=== PATIENT | male | born 1960 | race Caucasian/White ===

== ENCOUNTER 2017-01-31 10:45 | Inpatient (IN) | payer OTHER ==
[~2017-01-31] VITALS: Ht 174 cm; Wt 88.0 kg
[2017-01-31] MEDS ORDERED: IV NORMAL SALINE 500 ML BAG IV ONE (11:00)
[2017-01-31 11:15] LABS: BASOPHILS # (AUTO) 0.1 K/uL (0.0-8.0); EOSINOPHILS # (AUTO) 0.1 K/uL (0.0-0.7); EOSINOPHILS % (AUTO) 1.9 % (0.0-7.0); HEMATOCRIT 29.9 % (36.7-47.1); LYMPHOCYTES % (AUTO) 16.2 % (20.5-51.5); MEAN CORPUSCULAR HEMOGLOBIN 30.7 uug (23.8-33.4); MEAN CORPUSCULAR HGB CONC 34 g/dL (32.5-36.3); MEAN CORPUSCULAR VOLUME 91.5 fL (73.0-96.2); MONOCYTES # (AUTO) 0.8 K/uL (2.0-10.0); MONOCYTES % (AUTO) 12.8 % (0.0-11.0); NEUTROPHILS # (AUTO) 4.1 K/uL (1.8-8.9); NEUTROPHILS % (AUTO) 68.1 % (38.5-71.5); PLATELET COUNT (AUTO) 121 K/uL (152-348); RED BLOOD CELL COUNT(AUTO) 3.27 MIL/uL (4.06-5.63)
[2017-01-31] MEDS ORDERED: NYSTATIN POWDER TP (11:15)
[2017-01-31] MEDS ORDERED: HYDR-3326 PO (11:15)
[2017-01-31] MEDS ORDERED: RIFA550T PO (11:15)
[2017-01-31] MEDS ORDERED: DIPH25CA83 PO (11:15)
[2017-01-31] MEDS ORDERED: INSU3INS6 SQ (11:15)
[2017-01-31] MEDS ORDERED: INSU100C SQ ×2 (11:15)
[2017-01-31] MEDS ORDERED: LACT10SO PO (11:15)
[2017-01-31] MEDS ORDERED: FOLI1TAB16 PO (11:15)
[2017-01-31] MEDS ORDERED: HYDROMORPHONE 1 MG/1 ML DISP.SYRIN IV ONE (11:15)
[2017-01-31] MEDS ORDERED: ONDANSETRON IV *ER 4 MG/2 ML VIAL IV ONE (11:15)
[2017-01-31] MEDS ORDERED: MAGN400C PO (11:15)
[2017-01-31] MEDS ORDERED: PANT40TA4 PO (11:15)
[2017-01-31] MEDS ORDERED: THIA100T74 PO (11:15)
[2017-01-31 11:19] LABS: POTASSIUM 5.3 mmol/L (3.5-5.1)
[2017-01-31 11:24] LABS: BILIRUBIN,DIRECT 0.6 mg/dL (0.0-0.2); BILIRUBIN,TOTAL 1.3 mg/dL (0.2-1.0); TOTAL PROTEIN, SERUM 7.2 g/dL (6.4-8.2)
[2017-01-31] MEDS ORDERED: ONDANSETRON 4 MG/2 ML VIAL ONE (11:27)
[2017-01-31] MEDS ORDERED: HYDROMORPHONE 2 MG/1 ML DISP.SYRIN ONE (11:27)
--- NOTE | 2017-01-31 12:10 | NUR ---
PERINEAL HYGIENE PROVIDED, SCROTUM AND THE PENIS SWOLLEN AND TENDER. COCCYX REDNESS WITH SKIN OPEN NOTICED. BORDERED DRESSING PLACED.
--- NOTE | 2017-01-31 12:44 | NUR ---
PT TRANSFERED TO FLOOR IN STABLE CONDITION
[2017-01-31 13:21] VITALS: BP 136/93
[2017-01-31] MEDS ORDERED: TEMAZEPAM 15 MG CAPSULE PO PRN (13:30)
[2017-01-31] MEDS ORDERED: INSULIN REGULAR, HUMAN 300 UNITS/3 ML VIAL SQ PRN (13:30)
[2017-01-31] MEDS ORDERED: ONDANSETRON 4 MG/2 ML VIAL IV PRN (13:30)
[2017-01-31] MEDS ORDERED: diphenhydrAMINE 25 MG CAP PO PRN (13:30)
[2017-01-31] MEDS ORDERED: ALBUTEROL SULFATE 1.25 MG/3 ML NEBU NEB PRN (13:30)
[2017-01-31] MEDS ORDERED: DEXTROSE 50% 50 ML DISP.SYRIN IV PRN (13:30)
[2017-01-31 15:20] VITALS: BP 136/76
--- NOTE | 2017-01-31 16:00 | NUR ---
Pt in room at this time receiving parcentesis. Sinus rhythm noted. No s/s of acute distress at this time. Continue to monitor.
[2017-01-31] MEDS ORDERED: Medication Not On Formulary EA (Lactulose (Duphalac) 30 ML) PO SCH (17:00)
--- NOTE | 2017-01-31 17:00 | NUR ---
Pt had 6L of fluids removed via paracentesis. Denies any dizziness or headaches at this time. States he would like some pain medication for general pain 10/30. Continue to monitor. HOB elevated 30 degrees. Call light placed within reach.
[2017-01-31] MEDS: BLOOD SUGAR DIAGNOSTIC 1 EACH STRIP VI SCH ×2 (17:05→21:14)
[2017-01-31] MEDS: PANTOPRAZOLE SODIUM 40 MG TABLET.DR PO SCH (17:24)
[2017-01-31] MEDS: MAGNESIUM OXIDE 400 MG TABLET PO SCH (17:24)
[2017-01-31] MEDS: RIFAXIMIN 550 MG TABLET PO SCH (17:24)
[2017-01-31] MEDS: HYDROCODONE/APAP 5-325MG TABLET PO PRN (17:25)
[2017-01-31] MEDS: LACTULOSE 20 G/30 ML LIQUID UDC PO SCH (17:25)
[2017-01-31] MEDS: CEFTRIAXONE 1 G in IV DEXTROSE 5% 50 ML IV SCH (17:48)
[2017-01-31 20:00] VITALS: BP 104/65
[2017-01-31] MEDS: INSULIN DETEMIR 300 UNIT/3 ML CARTRIDGE SQ SCH (21:11)
--- NOTE | 2017-02-01 01:00 | NUR ---
Pt asleep at this time. No acute distress. Continue to monitor. Call light placed within reach.
[2017-02-01] MEDS: HYDROCODONE/APAP 5-325MG TABLET PO PRN ×4 (02:54→21:10)
[2017-02-01 05:28] VITALS: BP 111/69
[2017-02-01] MEDS: BLOOD SUGAR DIAGNOSTIC 1 EACH STRIP VI SCH ×4 (06:42→21:00)
[2017-02-01 07:22] LABS: BASOPHILS % (AUTO) 0.7 % (0.0-2.0); EOSINOPHILS # (AUTO) 0.1 K/uL (0.0-0.7); HEMOGLOBIN 9.1 g/dL (12.5-16.3); LYMPHOCYTES # (AUTO) 0.9 K/uL (20.0-40.0); MEAN CORPUSCULAR HEMOGLOBIN 30.6 uug (23.8-33.4); MEAN CORPUSCULAR HGB CONC 34 g/dL (32.5-36.3); MEAN CORPUSCULAR VOLUME 89.7 fL (73.0-96.2); MONOCYTES # (AUTO) 0.6 K/uL (2.0-10.0); MONOCYTES % (AUTO) 12.9 % (0.0-11.0); NEUTROPHILS # (AUTO) 2.8 K/uL (1.8-8.9); NEUTROPHILS % (AUTO) 62.4 % (38.5-71.5); RED BLOOD CELL COUNT(AUTO) 2.97 MIL/uL (4.06-5.63); WHITE BLOOD COUNT (AUTO) 4.5 K/uL (3.6-10.2)
[2017-02-01 07:30] LABS: CREATININE 0.8 mg/dL (0.6-1.3); MAGNESIUM 1.8 mg/dL (1.8-2.4); PHOSPHOROUS 3.3 mg/dL (2.5-4.9); POTASSIUM 4.9 mmol/L (3.5-5.1); TOTAL PROTEIN, SERUM 6.3 g/dL (6.4-8.2)
[2017-02-01 07:37] LABS: HEMATOCRIT 26.7 % (36.7-47.1)
[2017-02-01 07:38] LABS: PLATELET COUNT (AUTO) 97 K/uL (152-348)
--- NOTE | 2017-02-01 07:45 | NUR ---
Received patient, awake, alert x4. With pain over abdominal area. No SOB. Not in apparent distress. Call light within reach.
[2017-02-01] MEDS: INSULIN REGULAR, HUMAN 300 UNIT/3 ML VIAL SQ PRN ×3 (07:55→17:11)
--- NOTE | 2017-02-01 08:00 | NUR ---
Reported critical lab value of Albumin 1.[address] Paeg. no new orders at this time.
[2017-02-01] MEDS: RIFAXIMIN 550 MG TABLET PO SCH ×2 (08:51→17:12)
[2017-02-01] MEDS: LACTULOSE 20 G/30 ML LIQUID UDC PO SCH ×3 (08:51→17:12)
[2017-02-01] MEDS: THIAMINE HCL 100 MG TABLET PO SCH (08:52)
[2017-02-01] MEDS: MAGNESIUM OXIDE 400 MG TABLET PO SCH ×2 (08:52→17:12)
[2017-02-01] MEDS: FOLIC ACID 1 MG TABLET PO SCH (08:52)
[2017-02-01] MEDS: PANTOPRAZOLE SODIUM 40 MG TABLET.DR PO SCH ×2 (08:52→17:12)
--- NOTE | 2017-02-01 09:00 | NUR ---
Ammonia levels at 199. Informed Dr. Page
[2017-02-01 09:21] LABS: BASOPHILS % (MANUAL) 3 % (0-2); EOSINOPHILS % (MANUAL) 4 % (0-8); LYMPHOCYTES % (MANUAL) 17 % (20-40); MONOCYTES % (MANUAL) 9 % (2-10); NEUTROPHILS % (MANUAL) 67 % (42-75)
[2017-02-01 11:11] VITALS: BP 112/74
[2017-02-01] MEDS: CEFTRIAXONE 1 G in IV DEXTROSE 5% 50 ML IV SCH (14:32)
[2017-02-01] MEDS ORDERED: Z GUARD REMEDY PASTE 57 GM TUBE TOP SCH (14:45)
[2017-02-01 15:17] VITALS: BP 118/79
--- NOTE | 2017-02-01 15:21 | NUR ---
Pain over abdomen rated as 8/10. PRN [place] given
--- NOTE | 2017-02-01 19:30 | NUR ---
Pt alert awake oriented x 4. No s/s of acute distress noted. Abdomen is moderately enlarged. No c/o pain at this time. Continue to monitor.
--- NOTE | 2017-02-01 19:42 | NUR ---
End of shift notes: Patient awake, alert x4. No complaints of pain. Call light within reach. Not in apparent distress
[2017-02-01 20:00] VITALS: BP 117/78
[2017-02-01] MEDS: INSULIN DETEMIR 300 UNIT/3 ML CARTRIDGE SQ SCH (21:03)
[2017-02-01 22:54] LABS: *BILIRUBIN,URIN 1+ (NEGATIVE); *BLOOD, URINE Trace-intact (NEGATIVE); *CLARITY,URINE CLOUDY (CLEAR); *COLOR,URINE AMBER (YELLOW); *KETONES,URINE TRACE (NEGATIVE); *PROTEIN,URINE 1+ (NEGATIVE); LEUKOCYTE ESTERASE ,URINE 1+ (NEGATIVE); NITRITE, URINE NEGATIVE (NEGATIVE); UGLUCOSE NEGATIVE (NEGATIVE)
[2017-02-01 23:04] LABS: BACTERIA,URINE FEW /HPF (NONE SEEN); SQUAMOUS EPITHELIAL CELL,UR MANY /HPF (NONE SEEN); WBC,URINE 50-80 /HPF (0-3)
--- NOTE | 2017-02-02 01:00 | NUR ---
Pt asleep in room at this time. No acute distress noted. Urine sample was obtained and brought down to lab. Continue to monitor.
--- NOTE | 2017-02-02 02:00 | NUR ---
RECEIVED SHIFT REPORT FROM NURSE AT DAY SHIFT. PATIENT IN STABLE CONDITION, NO SIGNS OF DISTRESS. PAIN COMPLAINED OF ABDOMINAL PAIN AND WILL BE FOLLOWED UP WITH PAIN MEDICATION. SAFETY CHECKS IMPLEMENTED AND COMFORT PROVIDED TO PATIENT. BED IN LOCKED, LOW POSITION. NO FALLS NOTED.
[2017-02-02 04:59] VITALS: BP 119/82
[2017-02-02] MEDS: BLOOD SUGAR DIAGNOSTIC 1 EACH STRIP VI SCH ×4 (06:49→21:21)
--- NOTE | 2017-02-02 07:30 | NUR ---
Pt alert awake in room. V/s are WNL. No acute distress. Requests [place] for generalized pain. States pressure on abdominal area. Pt aware of paracentesis today. Continue to monitor. Call light placed within reach.
[2017-02-02] MEDS: INSULIN REGULAR, HUMAN 300 UNIT/3 ML VIAL SQ PRN (07:47)
[2017-02-02] MEDS: THIAMINE HCL 100 MG TABLET PO SCH (08:00)
[2017-02-02] MEDS: FOLIC ACID 1 MG TABLET PO SCH (08:00)
[2017-02-02] MEDS: LACTULOSE 20 G/30 ML LIQUID UDC PO SCH ×3 (08:00→18:18)
[2017-02-02] MEDS: PANTOPRAZOLE SODIUM 40 MG TABLET.DR PO SCH ×2 (08:00→18:18)
[2017-02-02] MEDS: MAGNESIUM OXIDE 400 MG TABLET PO SCH ×2 (08:00→18:18)
[2017-02-02] MEDS: RIFAXIMIN 550 MG TABLET PO SCH ×2 (08:00→18:18)
[2017-02-02] MEDS: HYDROCODONE/APAP 5-325MG TABLET PO PRN ×3 (09:24→21:29)
[2017-02-02 11:24] VITALS: BP 110/75
--- NOTE | 2017-02-02 12:24 | NUR ---
Pt received wound care consult. Vince Du apply Lotrimen and z-guard around groin/affected pressure sore. Add Hydrogel directly onto pressore sore on sacral area.
--- NOTE | 2017-02-02 12:25 | NUR ---
WOUND CARE CONSULT: PT PRESENTS WITH VERY LARGE ABDOMEN WITH ONE SUTURE NOTED. PT ALSO PRESENTS WITH SMALL STAGE 2 ULCER TO SACRUM WITH SURROUNDING RASH, PRESENT ON ADMISSION. PT ON FIRST STEP MATTRESS. ALL SKIN PROTECTION MEASURES AND WOUND RECOMMENDATIONS DISCUSSED WITH NURSING STAFF. WILL SEE PRN. RUSSELL IN AGREEMENT WITH PLAN OF CARE. Addendum: 02/02/17 at 1227 by GUADALUPE SOSA RN Amended: Links added.
[2017-02-02] MEDS: Z GUARD REMEDY PASTE 57 GM TUBE TOP SCH ×2 (13:51→18:21)
[2017-02-02] MEDS: CLOTRIMAZOLE 1% CREAM 30 GM TUBE TOP SCH ×2 (13:53→18:39)
--- NOTE | 2017-02-02 14:15 | NUR ---
RECEIVED PT REPORT AT 1300, GAVE REPORT TO TO THE AM NURSE. NO CHANGES NOTED. NO S/S OF RESPIRATORY DISTRESS NOTE. NO PAIN NOTED. ALL SAFETY NEEDS ARE MET.
[2017-02-02 15:08] VITALS: BP 118/74
[2017-02-02] MEDS: CEFTRIAXONE 1 G in IV DEXTROSE 5% 50 ML IV SCH (15:12)
--- NOTE | 2017-02-02 16:30 | NUR ---
PATIENT IS TO RECEIVE PARACENTESIS. CONSENT CONFIRMED AND SIGNED BY PATIENT.
--- NOTE | 2017-02-02 17:00 | NUR ---
PARACENTESIS COMPLETED. TOTAL OF 6 LITERS FILLED OF FLUID FROM PARACENTESIS.
[2017-02-02 20:00] VITALS: BP 124/78
[2017-02-02] MEDS ORDERED: ALBUMIN HUMAN 25% 100 ML IV ONE (20:30)
[2017-02-02] MEDS ORDERED: INSULIN DETEMIR 300 UNIT/3 ML CARTRIDGE SQ SCH (21:00)
--- NOTE | 2017-02-02 21:00 | NUR ---
PATIENT'S BLOOD SUGAR CHECKED: 413. CRITICALLY VALUE AT HIGH END D/T PATIENT A LOT OF FOOD BEFORE BLOOD SUGAR WAS TAKEN. WILL RETAKE BLOOD SUGAR, AND FOLLOW UP. 10 UNITS OF HUMULIN ADMINISTERED ALONG WITH 35 UNITS OF LEVERMIR. WILL RECHECK BLOOD SUGAR.
[2017-02-03 04:41] VITALS: BP 125/76
[2017-02-03] MEDS: BLOOD SUGAR DIAGNOSTIC 1 EACH STRIP VI SCH ×3 (06:31→16:51)
--- NOTE | 2017-02-03 07:15 | NUR ---
Received patient asleep, lying on bed on a semi- cramer's position, easily aroused with no SOB distress or discomforts noted. all needs attended and anticipated call light within reach. Will continue to monitor closely.
--- NOTE | 2017-02-03 08:24 | NUR ---
Assist patient at this time to sit up for breakfast, plug in telephone to lloyd to call for his mom to tell her he is ok. Given as needed assist. 100ml of [place] urine output emptied.
[2017-02-03] MEDS: THIAMINE HCL 100 MG TABLET PO SCH (08:45)
[2017-02-03] MEDS: FOLIC ACID 1 MG TABLET PO SCH (08:45)
[2017-02-03] MEDS: PANTOPRAZOLE SODIUM 40 MG TABLET.DR PO SCH ×2 (08:45→16:22)
[2017-02-03] MEDS: MAGNESIUM OXIDE 400 MG TABLET PO SCH ×2 (08:45→16:22)
[2017-02-03] MEDS: RIFAXIMIN 550 MG TABLET PO SCH ×2 (08:45→16:22)
[2017-02-03] MEDS: LACTULOSE 20 G/30 ML LIQUID UDC PO SCH ×3 (08:45→16:21)
[2017-02-03] MEDS: Z GUARD REMEDY PASTE 57 GM TUBE TOP SCH ×2 (08:49→16:25)
[2017-02-03] MEDS: CLOTRIMAZOLE 1% CREAM 30 GM TUBE TOP SCH ×2 (08:53→16:24)
[2017-02-03] MEDS: HYDROCODONE/APAP 5-325MG TABLET PO PRN ×2 (09:03→15:10)
[2017-02-03 10:59] VITALS: BP 131/75
[2017-02-03] MEDS: INSULIN REGULAR, HUMAN 300 UNIT/3 ML VIAL SQ PRN ×2 (11:53→16:58)
--- NOTE | 2017-02-03 13:00 | NUR ---
Patient request for pain medication at this time. Provided education about as needed schedule unavailable at this time. Patient verbalized understanding.
[2017-02-03] MEDS ORDERED: TEMA15CA5 PO (13:36)
[2017-02-03] MEDS ORDERED: INSU3INS6 SQ (13:36)
[2017-02-03] MEDS ORDERED: OMEP20TA5 PO (13:36)
[2017-02-03] MEDS ORDERED: MENT71OI TOP (13:36)
[2017-02-03] MEDS ORDERED: ALBU1.25 NEB (13:36)
[2017-02-03] MEDS ORDERED: LEVO500T2 PO (13:39)
[2017-02-03] MEDS: CEFTRIAXONE 1 G in IV DEXTROSE 5% 50 ML IV SCH (14:14)
[2017-02-03 15:15] VITALS: BP 110/75
--- NOTE | 2017-02-03 16:03 | NUR ---
Patient verbalizes understanding of discharge/transition instruction at this time.
--- NOTE | 2017-02-03 16:58 | NUR ---
Patient transport via ambulance at this time. Gave nurse report to Mya prior to discharge. Intravenous site in place because patient needs medication via intravenous route. Identification band removed. Patient nurse to notify hospice nurse of patient arrival.
== END 2017-02-03 16:55 | disposition hospice, inpatient (51) | DRG 280 ==
LOC: ER 10:46 → TELE 12:39 → MED 20:00
PROVIDERS: ADMIT Internal Medicine; ATTEND Internal Medicine
PROC: 0W9G3ZZ Drainage of Peritoneal Cavity, Percutaneous Approach (ICD-10-PCS; principal; 2017-01-31)
PROC: 30233J1 Transfusion of Nonautologous Serum Albumin into Peripheral Vein, Percutaneous Approach (ICD-10-PCS; 2017-02-02)
PROC: 0W9G3ZZ Drainage of Peritoneal Cavity, Percutaneous Approach (ICD-10-PCS; 2017-02-02)
DX: K70.31 Alcoholic cirrhosis of liver with ascites (principal); K70.40 Alcoholic hepatic failure without coma; J69.0 Pneumonitis due to inhalation of food and vomit; E43 Unspecified severe protein-calorie malnutrition; D61.818 Other pancytopenia; J91.8 Pleural effusion in other conditions classified elsewhere; L89.152 Pressure ulcer of sacral region, stage 2; K76.6 Portal hypertension; E87.1 Hypo-osmolality and hyponatremia; E87.5 Hyperkalemia; E11.65 Type 2 diabetes mellitus with hyperglycemia; F10.288 Alcohol dependence with other alcohol-induced disorder; Y90.9 Presence of alcohol in blood, level not specified; Z87.891 Personal history of nicotine dependence; Z79.4 Long term (current) use of insulin; Z68.29 Body mass index [BMI] 29.0-29.9, adult; N39.0 Urinary tract infection, site not specified
CPT/HCPCS: 36415; 70030-TC; 71010; 83690; 83735; 84100; 85025; 85730; 87086; 93005; 94664; 97116; 97530; A4663; J0696; J1170; J1815; J2405; J7030; J7040; J7060; P9047